=== PATIENT | female | born 1990 | race Two or more races ===

== ENCOUNTER → 2016-09-06 | Outpatient (CLI) | payer OTHER ==
[~2016-09-06] MED LIST: NO MEDICATIONS
--- NOTE | ~2016-09-06 | CR97 ---
[facility] A Service of [facility] RADIOLOGY TEXT RESULTS PATIENT: COBY MCGUIRE LOCATION: [facility] : 92 UNIT #: [id number] AGE: [address]: Heladio Purcell III, MD SEX: F ORDER DR: [id number] [place], [place] [address] [id number] O MR#: [id number] Acc #: [id number] NAME: COBY MCGUIRE : 1990 SEX: F STUDY DATE/TIME: 09/06/2016 8:58 UNIT: [facility] ROOM: STUDY DESCRIPTION: CR Esophagram Attending Physician: Heladio Purcell III, M.D. Ordering Physician: Heladio Purcell III, M.D. Primary Care Physician: [facility] MEDICAL IMAGING REPORT This report is preliminary unless electronic signature is present EXAM Esophagram. HISTORY Preprocedure evaluation prior to Lap-Band placement. PROCEDURE The patient swallowed barium under fluoroscopy. A total of 17 images were obtained. Fluoro time 0.3 minutes. COMPARISON None FINDINGS Patient swallows the barium without difficulty. No esophageal mass or stricture or evidence for appreciable hiatal hernia. IMPRESSION Negative esophagram. Dictated by... Keenan Franco M.D. THIS IS AN ELECTRONICALLY VERIFIED REPORT Keenan Franco M.D. at 09/08/2016 9:51 PM JIMMY/donita TD: 09/06/2016 18:04 JOB #: [id number] MEDICAL IMAGING REPORT [facility] A Service of [facility] RADIOLOGY TEXT RESULTS PATIENT: COBY CMGUIRE LOCATION: [facility] : 92 UNIT #: [id number] AGE: [address]: Heladio Purcell III, MD SEX: F ORDER DR: Page 1 of 1 COPY
--- NOTE | ~2016-09-06 | EKG ---
PATIENT: COBY MCGUIRE UNIT #: [id number] Ventricular Rate: 69 BPM Atrial Rate: 69 BPM P-R Interval: 146 ms QRS Duration: 80 ms Q-T Interval: 408 ms QTC Calculation(Bezet): 437 ms P Readfield: 27 degrees Calculated R Readfield: 36 degrees Calculated T Readfield: 43 degrees Diagnosis Line: Normal sinus rhythm with sinus arrhythmia Diagnosis Line: Normal ECG Diagnosis Line: No previous ECGs available Diagnosis Line: Confirmed by DEIDRE MONTANO MD ([id number]) on 09/06/2016 Diagnosis Line: 4:42:26 PM INTERPRETING MD: DUSTY ANDERSON
--- NOTE | ~2016-09-06 | CR63 ---
[facility] A Service of [facility] RADIOLOGY TEXT RESULTS PATIENT: COBY MCGUIRE LOCATION: [facility] : 92 UNIT #: [id number] AGE: [address]: Heladio Purcell III, MD SEX: F ORDER DR: [id number] [facility] [address] [place], [place] [address] [id number] O MR#: [id number] Acc #: [id number] NAME: COBY MCGUIRE : 1990 SEX: F STUDY DATE/TIME: 09/06/2016 7:44 UNIT: [facility] ROOM: STUDY DESCRIPTION: CR Chest 2 View Attending Physician: Heladio Purcell III, M.D. Ordering Physician: Heladio Purcell III, M.D. Primary Care Physician: Replaced By [facility] MEDICAL IMAGING REPORT This report is preliminary unless electronic signature is present EXAM Chest PA and lateral, 09/06/2016 HISTORY Morbid obesity, preop laparoscopic gastric banding. Shortness of breath on exertion today. Benign essential hypertension, heartburn. Smoking history for 10 years. FINDINGS PA and lateral examination of the chest upright shows a good expansion of the parenchyma with a normal distribution of the pulmonary vascularity. There is no indication of congestion, effusion, infiltrate, tumor, or nodular density. The pleural reflections and diaphragmatic contours are normal. The cardiac silhouette and mediastinal anatomy is within normal limits. IMPRESSION Normal chest. Dictated by... Bassem Gong M.D. THIS IS AN ELECTRONICALLY VERIFIED REPORT Bassem Gong M.D. at 09/06/2016 10:52 AM THERESA/alia TD: 09/06/2016 09:58 JOB #: [id number] MEDICAL IMAGING REPORT Page 1 of 1 COPY
[2016-09-06 09:51] LABS: HEMATOCRIT 41.9 % (35.0-45.0); HEMOGLOBIN 13.4 gm/dL (12.0-16.0); MEAN CORPUSCULAR HEMOGLOBIN 28.6 PG (28-34); MEAN CORPUSCULAR HGB CONC 32.1 g/dL (30-36); RED BLOOD COUNT 4.71 X10e (3.90-5.30); RED CELL DISTRIBUTION WIDTH 13.7 % (11.0-15.5); WHITE BLOOD COUNT 8.8 X10e3 (4.0-10.5)
[2016-09-06 10:36] LABS: ALBUMIN SERUM 3.8 g/dL (3.5-5.0); BILIRUBIN,TOTAL 0.4 mg/dL (0.2-2.0); BUN/CREATININE RATIO 11.42; CALCIUM SERUM 9.2 mg/dL (8.4-10.2); CREATININE SERUM 0.7 mg/dL (0.6-1.4); GLOM FILT RATE Estimated 121.3 mL/min (>60); PROTEIN TOTAL SERUM 6.7 g/dL (6.0-8.3)
== END | disposition home or self-care (01) ==
LOC: CRAD 07:27
PROVIDERS: Surgery
DX: Z01.818 Encounter for other preprocedural examination (principal)
CPT/HCPCS: 36415; 71020; 74220; 80053; 80061; 84443; 85027; 93005

== ENCOUNTER → 2016-09-18 | Day surgery (SDC) | payer OTHER ==
--- NOTE | ~2016-09-18 | OR ---
Unit #: [id number] #: [id number] Patient: COBY MCGUIRE [id number] [facility] [address] [place], [place] [address] [id number] O MR#: [id number] NAME: COBY MCGUIRE ROOM: Date of Procedure: 09/18/2016 Admission Date: 09/18/2016 Surgeon: Heladio Purcell III, M.D. : 1990 Attending Physician: Heladio Purcell III, M.D. Primary Care Physician: [facility] OPERATIVE REPORT PREOPERATIVE DIAGNOSIS Chronic morbid obesity. POSTOPERATIVE DIAGNOSIS Chronic morbid obesity. SECONDARY DIAGNOSIS Anterior paraesophageal hernia. PROCEDURE PERFORMED Laparoscopic adjustable gastric banding (AP standard with regular port) and laparoscopic paraesophageal hernia repair. [employer] Jb Duggan M.D. SPECIMENS None. COMPLICATIONS None apparent. ESTIMATED BLOOD LOSS Minimal. INDICATIONS FOR PROCEDURE This is a 26-year-old lady, who has chronic morbid obesity with a BMI of 50 and associated comorbidities of hypertension. She has been through the bariatric program at [facility] and understands risks and benefits of the procedure. DESCRIPTION OF PROCEDURE After consent was obtained, including the risks and benefits of slippage, erosion, port dysfunction, and possible failure of weight loss due to noncompliance, the patient was taken to the operating room and placed in the supine position. General anesthetic was administered and the abdomen was prepped and draped in standard surgical fashion. I began by making a 2 cm incision just above and to the left of the umbilicus. I used a Visiport to enter the peritoneal cavity without any difficulty. C02 pneumoperitoneum was then established. Next, I placed a Unit #: [id number] #: [id number] Patient: COBY MCGUIRE 5 mm port in the right upper quadrant, a 5 mm Rashard liver retractor in the subxiphoid region to provide exposure of the gastroesophageal junction. Next, a 10 mm port was placed in the left upper quadrant and a 5 mm port was placed in the left lateral subcostal region. I began by performing an examination of the GE junction to evaluate for a hiatal hernia. We then scored the peritoneal attachments overlying the angle of His. I then opened up the clear space in the gastrohepatic ligament, and then using 2 blunt graspers, I identified the small fat pad crossing over the right crura. I swept the fat anterior to the crura off the crura and using the pars flaccida, I created a retrogastric tunnel where the blunt grasper exited at the angle of His. Once I had made this tunnel safely, I then inserted an Allergan AP band into the abdominal cavity. This adjustable gastric band was then place around the upper part of the stomach and fastened and buckled anteriorly. We then tacked the lateral fundus over the band to the proximal pouch with 2 interrupted 0 Ethibond sutures. I then used a third stitch to imbricate the excess anterior stomach by going from the lesser curvature up towards where the last stitch was placed. We then had excellent hemostasis. I removed the Rashard liver retractor. We then removed the port tubing through the initial port incision. The rest of the ports were removed, and the pneumoperitoneum was released. I then left a small tail on the tubing. We then attached the port to the excess band tubing. We placed a piece of Prolene mesh along the back side of the port and used a Prolene stitch to anchor this mesh in place. We then trimmed the excess mesh so that just a small footprint of mesh was in place behind the port. I then inserted the tubing back into the abdominal cavity, and we placed the port into a small pocket that was made just inferior to where our initial port incision was made. The mesh was in direct contact with the fascia, and this will scar in place to hold the port in place. We then injected all the port sites with 0.25% plain Marcaine, and I reapproximated the skin edges with interrupted 4-0 Vicryl subcuticular sutures. Steri-strips were then applied. The patient tolerated the procedure without any problems and returned to the recovery room in stable condition. ADDENDUM After exposure of the GE junction, the patient was noted to have a small to medium size anterior paraesophageal hernia. I scored the phrenoesophageal ligament, reduced the hernia defect and after identifying both the right and left crura, I reapproximated the defect with an interrupted 0 Ethibond [id number] suture. I then proceed with the case as listed above. Dictated by... Heladio Purcell III, M.D. VCL/cristel TD: 09/19/2016 08:27 JOB #: [id number] CC: Ra Torres M.D. Unit #: [id number] #: [id number] Patient: COBY MCGUIRE OPERATIVE REPORT Page 1 of 1 X Heladio Purcell III, MD X PROCEDURE OPERATIVE NOTE
--- NOTE | ~2016-09-18 | CR7 ---
[facility] A Service of [facility] RADIOLOGY TEXT RESULTS PATIENT: COBY MCGUIRE LOCATION: [facility] : 92 UNIT #: [id number] AGE: [address]: Heladio Purcell III, MD SEX: F ORDER DR: [id number] [facility] [address] [place], [place] [address] [id number] O MR#: [id number] Acc #: [id number] NAME: COBY MCGUIRE : 1990 SEX: F STUDY DATE/TIME: 09/18/2016 8:31 UNIT: [facility] ROOM: STUDY DESCRIPTION: CR Abdomen Single AP View Attending Physician: Heladio Purcell III, M.D. Ordering Physician: Heladio Purcell III, M.D. Primary Care Physician: [facility] MEDICAL IMAGING REPORT This report is preliminary unless electronic signature is present EXAM Abdominal radiograph INDICATION Lap-Band placement today. Evaluate positioning. PROCEDURE Supine view of the abdomen COMPARISON None FINDINGS There is a Lap-Band in place approximately 60 degrees to the thoracic spine. Visualized extent of the catheter is intact. Previous cholecystectomy. IMPRESSION Expected appearance of the Lap-Band. Dictated by... Keenan Franco M.D. THIS IS AN ELECTRONICALLY VERIFIED REPORT Keenan Franco M.D. at 09/19/2016 6:52 AM Jhonny TD: 09/18/2016 11:13 JOB #: [id number] MEDICAL IMAGING REPORT Page 1 of 1 COPY
== END | disposition home or self-care (01) ==
LOC: CSUR 05:50
DX: E66.01 Morbid (severe) obesity due to excess calories (principal); K44.9 Diaphragmatic hernia without obstruction or gangrene; I10 Essential (primary) hypertension; E78.00 Pure hypercholesterolemia, unspecified; F32.9 Major depressive disorder, single episode, unspecified; Z68.43 Body mass index [BMI] 50.0-59.9, adult; Z87.891 Personal history of nicotine dependence; Z90.49 Acquired absence of other specified parts of digestive tract
CPT/HCPCS: 74000; 84703; C1781; J0330; J1650; J1885; J2250; J2405; J2710; J3010; J3370